=== PATIENT | female | born 1995 | race African-American/Black ===

== ENCOUNTER 2017-03-20 05:39 | Emergency (ER) | payer MEDICAID, MEDICARE ==
[~2017-03-20] VITALS: Ht 167.6 cm; Wt 121.4 kg
[2017-03-20 09:59] VITALS: BP 132/82
== END 2017-03-20 14:31 | disposition home or self-care (01) ==
LOC: ER 09:32
DX: Z00.8 Encounter for other general examination (principal)
CPT/HCPCS: 99281